=== PATIENT | male | born 1985 | race African-American/Black ===

== ENCOUNTER 2020-07-14 23:55 | Inpatient (IN) | payer BC, OTHER ==
[~2020-07-14] VITALS: Ht 195.6 cm; Wt 220.4 kg
--- NOTE | 2020-07-15 00:34 | NUR ---
Pt to [facility] for having increased SOB. Pt has had about 1 week of not feeling well, SOB, fatigue, FELIX, N/V/D. Pt was tested + for Covid on Sunday. Today pt states he had increased difficulty breathing and became concerned. Pt had received IV steroid per EMS. Pt on 2L oxymask with sats in the 90's. Pt with non labored breathing at the moment, and states he feels better than earlier. Pt on monitor, will monitor. Call light in reach.
[2020-07-15] MEDS ORDERED: LISI-170 PO (01:32)
[2020-07-15] MEDS ORDERED: HYDR25TA6 PO (01:32)
[2020-07-15] MEDS ORDERED: ALBU18HF INH (01:32)
--- NOTE | 2020-07-15 01:51 | NUR ---
Attempt to call report. Nurse unavailable.
[2020-07-15] MEDS ORDERED: DOCUSATE 100 MG CAPSULE PO PRN (02:00)
[2020-07-15] MEDS ORDERED: ACETAMINOPHEN 325 MG TABLET PO PRN (02:00)
[2020-07-15] MEDS ORDERED: ALBUTEROL HFA 90 MCG/SPRAY INH PRN (02:00)
[2020-07-15] MEDS ORDERED: POLYETHYLENE GLYCOL 17 GM PACKET PO PRN (02:00)
[2020-07-15] MEDS ORDERED: morphine SULFATE 10 MG/ML, 1ML IVPush PRN (02:00)
[2020-07-15] MEDS ORDERED: PROMETHAZINE 25 MG/ML, 1ML IM PRN (02:00)
[2020-07-15] MEDS ORDERED: hydrALAzine 20 MG/ML, 1ML IVPush PRN (02:00)
[2020-07-15] MEDS ORDERED: BISACODYL 10 MG SUPP PR PRN (02:00)
[2020-07-15] MEDS ORDERED: OXYcodone IR 5MG TABLET PO PRN (02:00)
[2020-07-15] MEDS ORDERED: ONDANSETRON ODT 4 MG PO PRN (02:00)
[2020-07-15] MEDS ORDERED: ONDANSETRON 2MG/ML, 2ML IVPush PRN (02:00)
--- NOTE | 2020-07-15 02:05 | NUR ---
Report called to Yam[facility] COATES. Pt calm resting in bed. In no distress. On 2l NC and tolerating it well. Pt ready for transport.
[2020-07-15 02:24] VITALS: BP 149/98
[2020-07-15] MEDS: ENOXAPARIN 40 MG/0.4 ML SQ SCH ×2 (02:50→11:23)
[2020-07-15] MEDS: CEFTRIAXONE PMX 2GM/50ML 50 ML IVPB SCH (03:17)
[2020-07-15] MEDS: DEXAMETHASONE 4 MG/ML, 1ML IVPush SCH ×2 (03:18→14:10)
[2020-07-15] MEDS: AZITHROMYCIN 500 MG in SODIUM CHLORIDE 0.9% 250 ML IV SCH (03:52)
--- NOTE | 2020-07-15 05:47 | NUR ---
ACCT ACCESSED FOR ROOM LOCATION TO TRANSFER FAMILY CALL.
[2020-07-15] MEDS: ALBUTEROL HFA 90 MCG/SPRAY INH SCH ×4 (07:58→20:50)
[2020-07-15] MEDS: ASCORBIC ACID 500 MG TABLET PO SCH ×2 (07:59→16:33)
[2020-07-15] MEDS: ZINC SULFATE 220 MG CAPSULE PO SCH (08:00)
[2020-07-15] MEDS: CHOLECALCIFEROL 5,000u TAB PO SCH (08:00)
[2020-07-15] MEDS: HYDROCHLOROTHIAZIDE 25 MG TABLET PO SCH (08:03)
[2020-07-15] MEDS: FLUTICASONE/VILANTEROL 200-25MCG/INH INH SCH (08:05)
[2020-07-15 08:08] LABS: BASOPHILS % (AUTO) 1 % (0-1); EOSINOPHILS % (AUTO) 0 % (1-7); LYMPHOCYTES % (AUTO) 8 % (22-44); MEAN CORPUSCULAR HEMOGLOBIN 29.1 pg (27.5-34.5); MEAN PLATELET VOLUME 8.4 fL (7.4-10.4); MONOCYTES % (AUTO) 7 % (2-9); NEUTROPHILS % (AUTO) 84 % (42-75); PLATELET COUNT 196 x10^3/uL (130-400); RED BLOOD COUNT 5.24 x10^6/uL (4.38-5.82)
[2020-07-15 08:09] LABS: MD NO
[2020-07-15] MEDS: LISINOPRIL 10 MG TABLET PO SCH (08:10)
[2020-07-15 08:12] LABS: ALBUMIN 3.3 g/dL (3.4-5.0); ANION GAP 9 mmol/L (5-15); CALCIUM 8.1 mg/dL (8.5-10.1); CHLORIDE 102 mmol/L (98-107)
[2020-07-15 08:16] LABS: D-DIMER (DIC) 0.67 ug/mlFEU (0.00-0.52); PROTIME 12.7 Seconds (9.6-11.5)
[2020-07-15 08:21] LABS: ALANINE AMINOTRANSFERASE 84 U/L (12-78); ALKALINE PHOSPHATASE 32 U/L (45-117); BILIRUBIN,TOTAL 0.5 mg/dL (0.2-1.0); CHOL/HDL RATIO 6.6; CHOLESTEROL, TOTAL 113 mg/dL (140-239); CREATININE 1.01 mg/dL (0.7-1.3); HDL CHOL % 15 % (26-37); HDL CHOLESTEROL (DIRECT) 17 mg/dL (40-60); LDL CHOLESTEROL,CALCULATED 75 mg/dL (54-169); LDL/HDL RATIO 4.4 (0.5-3.0); TOTAL PROTEIN 7.8 g/dL (6.4-8.2); TRIGLYCERIDES 106 mg/dL (50-200); TROPONIN I 0.047 ng/mL (0.000-0.045); VLDL CHOLESTEROL 21 mg/dL (0-25)
[2020-07-15 08:56] VITALS: BP 159/85
[2020-07-15 09:41] LABS: TROPONIN I 0.052 ng/mL (0.000-0.045)
[2020-07-15] MEDS ORDERED: REMDESIVIR 200 MG in SODIUM CHLORIDE 0.9% 250 ML IVPB ONE (11:00)
[2020-07-15 13:51] VITALS: BP 124/75
[2020-07-15 20:18] VITALS: BP 139/80
[2020-07-15] MEDS: MELATONIN 5 MG TABLET PO SCH (20:50)
[2020-07-16 01:24] VITALS: BP 138/83
[2020-07-16] MEDS: ENOXAPARIN 40 MG/0.4 ML SQ SCH ×2 (02:36→11:32)
[2020-07-16] MEDS: CEFTRIAXONE PMX 2GM/50ML 50 ML IVPB SCH (02:41)
[2020-07-16] MEDS: DEXAMETHASONE 4 MG/ML, 1ML IVPush SCH ×2 (02:41→13:25)
[2020-07-16] MEDS: AZITHROMYCIN 500 MG in SODIUM CHLORIDE 0.9% 250 ML IV SCH (03:37)
[2020-07-16] MEDS: ALBUTEROL HFA 90 MCG/SPRAY INH SCH ×4 (06:09→20:57)
[2020-07-16 08:20] VITALS: BP 147/92
[2020-07-16 09:19] LABS: ALBUMIN 3.2 g/dL (3.4-5.0); ANION GAP 6 mmol/L (5-15); CALCIUM 8.5 mg/dL (8.5-10.1); CHLORIDE 99 mmol/L (98-107)
[2020-07-16] MEDS: FLUTICASONE/VILANTEROL 200-25MCG/INH INH SCH (09:20)
[2020-07-16 09:22] LABS: ALANINE AMINOTRANSFERASE 92 U/L (12-78); ALKALINE PHOSPHATASE 31 U/L (45-117); BILIRUBIN,TOTAL 0.6 mg/dL (0.2-1.0); CREATININE 0.89 mg/dL (0.7-1.3); TOTAL PROTEIN 7.9 g/dL (6.4-8.2)
[2020-07-16] MEDS: CHOLECALCIFEROL 5,000u TAB PO SCH (09:22)
[2020-07-16] MEDS: LISINOPRIL 10 MG TABLET PO SCH (09:22)
[2020-07-16] MEDS: HYDROCHLOROTHIAZIDE 25 MG TABLET PO SCH (09:22)
[2020-07-16] MEDS: ASCORBIC ACID 500 MG TABLET PO SCH ×2 (09:22→16:16)
[2020-07-16] MEDS: ZINC SULFATE 220 MG CAPSULE PO SCH (09:22)
[2020-07-16] MEDS: REMDESIVIR 100 MG in SODIUM CHLORIDE 0.9% 250 ML IVPB SCH (11:26)
[2020-07-16 12:50] VITALS: BP 149/93
[2020-07-16 19:44] VITALS: BP 131/82
[2020-07-16] MEDS: MELATONIN 5 MG TABLET PO SCH (20:57)
[2020-07-17 01:19] VITALS: BP 131/86
[2020-07-17] MEDS: ENOXAPARIN 40 MG/0.4 ML SQ SCH ×2 (02:00→14:12)
[2020-07-17] MEDS: DEXAMETHASONE 4 MG/ML, 1ML IVPush SCH ×2 (02:11→14:12)
[2020-07-17] MEDS: CEFTRIAXONE PMX 2GM/50ML 50 ML IVPB SCH (02:11)
[2020-07-17] MEDS: AZITHROMYCIN 500 MG in SODIUM CHLORIDE 0.9% 250 ML IV SCH (03:05)
[2020-07-17 05:44] LABS: CHLORIDE 97 mmol/L (98-107)
[2020-07-17 05:51] LABS: ALANINE AMINOTRANSFERASE 85 U/L (12-78); ALBUMIN 2.9 g/dL (3.4-5.0); ALKALINE PHOSPHATASE 28 U/L (45-117); ANION GAP 8 mmol/L (5-15); BILIRUBIN,TOTAL 0.6 mg/dL (0.2-1.0); CALCIUM 8.5 mg/dL (8.5-10.1); CREATININE 0.75 mg/dL (0.7-1.3); TOTAL PROTEIN 7.4 g/dL (6.4-8.2)
[2020-07-17] MEDS: ALBUTEROL HFA 90 MCG/SPRAY INH SCH ×4 (06:03→19:24)
[2020-07-17 07:35] VITALS: BP 142/88
[2020-07-17] MEDS: FLUTICASONE/VILANTEROL 200-25MCG/INH INH SCH (08:10)
[2020-07-17] MEDS: HYDROCHLOROTHIAZIDE 25 MG TABLET PO SCH (09:24)
[2020-07-17] MEDS: ZINC SULFATE 220 MG CAPSULE PO SCH (09:24)
[2020-07-17] MEDS: CHOLECALCIFEROL 5,000u TAB PO SCH (09:24)
[2020-07-17] MEDS: LISINOPRIL 10 MG TABLET PO SCH (09:24)
[2020-07-17] MEDS: ASCORBIC ACID 500 MG TABLET PO SCH ×2 (09:24→16:06)
[2020-07-17] MEDS: REMDESIVIR 100 MG in SODIUM CHLORIDE 0.9% 250 ML IVPB SCH (11:32)
[2020-07-17 13:57] VITALS: BP 117/74
[2020-07-17 19:44] VITALS: BP 146/82
[2020-07-17] MEDS: MELATONIN 5 MG TABLET PO SCH (21:06)
[2020-07-17 22:00] VITALS: BP 127/72
[2020-07-18] MEDS: DEXAMETHASONE 4 MG/ML, 1ML IVPush SCH ×2 (01:12→08:21)
[2020-07-18] MEDS: ENOXAPARIN 40 MG/0.4 ML SQ SCH ×2 (01:12→13:37)
[2020-07-18] MEDS: CEFTRIAXONE PMX 2GM/50ML 50 ML IVPB SCH (01:12)
[2020-07-18 01:20] VITALS: BP 121/82
[2020-07-18] MEDS: AZITHROMYCIN 500 MG in SODIUM CHLORIDE 0.9% 250 ML IV SCH (02:27)
[2020-07-18 04:06] LABS: ALANINE AMINOTRANSFERASE 82 U/L (12-78); ALBUMIN 2.8 g/dL (3.4-5.0); ANION GAP 7 mmol/L (5-15); CALCIUM 8.2 mg/dL (8.5-10.1); CHLORIDE 96 mmol/L (98-107); CREATININE 0.73 mg/dL (0.7-1.3)
[2020-07-18 04:08] LABS: ALKALINE PHOSPHATASE 28 U/L (45-117); BILIRUBIN,TOTAL 0.5 mg/dL (0.2-1.0); TOTAL PROTEIN 7.3 g/dL (6.4-8.2)
[2020-07-18] MEDS: ALBUTEROL HFA 90 MCG/SPRAY INH SCH ×5 (07:48→20:00)
[2020-07-18] MEDS: FLUTICASONE/VILANTEROL 200-25MCG/INH INH SCH (07:48)
[2020-07-18] MEDS: LISINOPRIL 10 MG TABLET PO SCH (08:20)
[2020-07-18] MEDS: ZINC SULFATE 220 MG CAPSULE PO SCH (08:20)
[2020-07-18] MEDS: HYDROCHLOROTHIAZIDE 25 MG TABLET PO SCH (08:20)
[2020-07-18] MEDS: CHOLECALCIFEROL 5,000u TAB PO SCH (08:20)
[2020-07-18] MEDS: ASCORBIC ACID 500 MG TABLET PO SCH ×2 (08:20→17:03)
[2020-07-18 08:21] VITALS: BP 127/91
[2020-07-18] MEDS: THIAMINE 100MG TABLET PO SCH (11:34)
[2020-07-18] MEDS: REMDESIVIR 100 MG in SODIUM CHLORIDE 0.9% 250 ML IVPB SCH (11:34)
[2020-07-18 15:24] VITALS: BP 136/75
[2020-07-18] MEDS: MELATONIN 5 MG TABLET PO SCH (20:40)
[2020-07-18 20:45] VITALS: BP 137/82
[2020-07-18 23:51] VITALS: BP 132/85
[2020-07-19] MEDS: ENOXAPARIN 40 MG/0.4 ML SQ SCH ×3 (02:00→13:42)
[2020-07-19] MEDS: CEFTRIAXONE PMX 2GM/50ML 50 ML IVPB SCH (02:07)
[2020-07-19 03:31] LABS: BASOPHILS % (AUTO) 0 % (0-1); EOSINOPHILS % (AUTO) 0 % (1-7); LYMPHOCYTES % (AUTO) 20 % (22-44); MEAN CORPUSCULAR HEMOGLOBIN 28.9 pg (27.5-34.5); MEAN CORPUSCULAR HGB CONC 33.9 g/dL (33.2-36.2); MEAN PLATELET VOLUME 8.3 fL (7.4-10.4); MONOCYTES % (AUTO) 14 % (2-9); NEUTROPHILS % (AUTO) 65 % (42-75); PLATELET COUNT 328 x10^3/uL (130-400); RED CELL DISTRIBUTION WIDTH 13.7 % (9.4-14.8)
[2020-07-19 03:37] LABS: MD NO
[2020-07-19 03:38] LABS: ALANINE AMINOTRANSFERASE 79 U/L (12-78); ALBUMIN 2.9 g/dL (3.4-5.0); ANION GAP 7 mmol/L (5-15); CALCIUM 8.5 mg/dL (8.5-10.1); CHLORIDE 95 mmol/L (98-107); CREATININE 0.83 mg/dL (0.7-1.3)
[2020-07-19 03:40] LABS: ALKALINE PHOSPHATASE 28 U/L (45-117); BILIRUBIN,TOTAL 0.6 mg/dL (0.2-1.0); TOTAL PROTEIN 7.3 g/dL (6.4-8.2)
[2020-07-19 03:50] VITALS: BP 134/85
[2020-07-19 08:02] VITALS: BP 138/79
[2020-07-19] MEDS: ASCORBIC ACID 500 MG TABLET PO SCH ×2 (08:02→17:04)
[2020-07-19] MEDS: CHOLECALCIFEROL 5,000u TAB PO SCH (08:02)
[2020-07-19] MEDS: HYDROCHLOROTHIAZIDE 25 MG TABLET PO SCH (08:02)
[2020-07-19] MEDS: ZINC SULFATE 220 MG CAPSULE PO SCH (08:02)
[2020-07-19] MEDS: THIAMINE 100MG TABLET PO SCH (08:02)
[2020-07-19] MEDS: FLUTICASONE/VILANTEROL 200-25MCG/INH INH SCH ×2 (08:03→08:39)
[2020-07-19] MEDS: LISINOPRIL 10 MG TABLET PO SCH (08:03)
[2020-07-19] MEDS: DEXAMETHASONE 4 MG/ML, 1ML IVPush SCH (08:37)
[2020-07-19] MEDS: REMDESIVIR 100 MG in SODIUM CHLORIDE 0.9% 250 ML IVPB SCH (11:46)
[2020-07-19] MEDS: ALBUTEROL HFA 90 MCG/SPRAY INH SCH ×4 (11:46→23:39)
[2020-07-19 14:01] VITALS: BP 135/67
[2020-07-19] MEDS: MELATONIN 5 MG TABLET PO SCH (20:36)
[2020-07-19 20:44] VITALS: BP 128/64
[2020-07-19 23:21] VITALS: BP 114/54
[2020-07-20] MEDS: ENOXAPARIN 40 MG/0.4 ML SQ SCH ×2 (02:00→14:00)
[2020-07-20] MEDS: CEFTRIAXONE PMX 2GM/50ML 50 ML IVPB SCH (02:55)
[2020-07-20 02:59] VITALS: BP 139/84
[2020-07-20 08:00] VITALS: BP 151/86
[2020-07-20] MEDS: FLUTICASONE/VILANTEROL 200-25MCG/INH INH SCH (08:00)
[2020-07-20] MEDS: THIAMINE 100MG TABLET PO SCH (08:52)
[2020-07-20] MEDS: ASCORBIC ACID 500 MG TABLET PO SCH ×2 (08:52→17:08)
[2020-07-20] MEDS: CHOLECALCIFEROL 5,000u TAB PO SCH (08:52)
[2020-07-20] MEDS: LISINOPRIL 10 MG TABLET PO SCH (08:52)
[2020-07-20] MEDS: ZINC SULFATE 220 MG CAPSULE PO SCH (08:52)
[2020-07-20] MEDS: DEXAMETHASONE 4 MG/ML, 1ML IVPush SCH (08:53)
[2020-07-20] MEDS: HYDROCHLOROTHIAZIDE 25 MG TABLET PO SCH (08:53)
[2020-07-20] MEDS: ALBUTEROL HFA 90 MCG/SPRAY INH SCH ×3 (10:52→20:00)
[2020-07-20 14:00] VITALS: BP 137/73
[2020-07-20 20:57] VITALS: BP 157/57
[2020-07-20] MEDS: MELATONIN 5 MG TABLET PO SCH (21:10)
[2020-07-21] MEDS: ENOXAPARIN 40 MG/0.4 ML SQ SCH (02:00)
[2020-07-21] MEDS: CEFTRIAXONE PMX 2GM/50ML 50 ML IVPB SCH (02:23)
[2020-07-21 02:24] VITALS: BP 146/73
[2020-07-21] MEDS: ALBUTEROL HFA 90 MCG/SPRAY INH SCH ×2 (07:00→10:58)
[2020-07-21] MEDS: FLUTICASONE/VILANTEROL 200-25MCG/INH INH SCH (08:01)
[2020-07-21] MEDS: LISINOPRIL 10 MG TABLET PO SCH (08:27)
[2020-07-21] MEDS: CHOLECALCIFEROL 5,000u TAB PO SCH (08:27)
[2020-07-21] MEDS: ZINC SULFATE 220 MG CAPSULE PO SCH (08:27)
[2020-07-21] MEDS: ASCORBIC ACID 500 MG TABLET PO SCH (08:27)
[2020-07-21] MEDS: HYDROCHLOROTHIAZIDE 25 MG TABLET PO SCH (08:27)
[2020-07-21] MEDS: THIAMINE 100MG TABLET PO SCH (08:27)
[2020-07-21 08:28] VITALS: BP 154/76
[2020-07-21] MEDS: DEXAMETHASONE 4 MG/ML, 1ML IVPush SCH (08:28)
[2020-07-21] MEDS ORDERED: RIVA15TA PO (12:04)
== END 2020-07-21 13:50 | disposition home or self-care (01) | DRG 177 ==
LOC: ED 07-15 01:35 → EDIP 07-15 01:43 → 4EST 07-15 02:33 → ICU 07-17 21:57
PROVIDERS: ADMIT Internal Medicine; ATTEND Internal Medicine
DX: U07.1 COVID-19 (principal); I21.4 Non-ST elevation (NSTEMI) myocardial infarction; J12.82 Pneumonia due to coronavirus disease 2019; J96.01 Acute respiratory failure with hypoxia; D68.59 Other primary thrombophilia; J45.901 Unspecified asthma with (acute) exacerbation; Z68.43 Body mass index [BMI] 50.0-59.9, adult; E66.01 Morbid (severe) obesity due to excess calories; F17.200 Nicotine dependence, unspecified, uncomplicated; G47.30 Sleep apnea, unspecified; I11.9 Hypertensive heart disease without heart failure; I44.30 Unspecified atrioventricular block; I49.8 Other specified cardiac arrhythmias; Z79.899 Other long term (current) drug therapy; Z79.891 Long term (current) use of opiate analgesic; Z79.01 Long term (current) use of anticoagulants; Z88.8 Allergy status to other drugs, medicaments and biological substances; Z91.010 Allergy to peanuts
CPT/HCPCS: 36415; 71045; 80053; 80061; 82728; 83036; 83605; 83615; 83735; 84145; 84443; 84484; 85025; 85049; 85379; 85384; 85610; 85730; 86140; 87081; 93005; 94640; 96374; 96375; 99285; G0378; J0456; J0696; J1100; J1650; J7050